=== PATIENT | male | born 1995 | race Caucasian/White ===

== ENCOUNTER 2024-08-29 06:04 | Day surgery (SDC) | payer OTHER, SELFPAY ==
[2024-08-21 14:34] VITALS: BMI 25.0
[2024-08-29 06:25] VITALS: BP 105/69; PULSE 63; RESP 16; TEMP 37.1; O2SAT 99
[2024-08-29] MEDS: LACTATED RINGERS 1000ML 1,000 ML 25 ML IV (06:34)
--- NOTE | 2024-08-29 06:53 | EXP.ANES.CKL ---
[facility] Disclaimer: The information contained in this section may have been updated after the patient was seen, as this information can be updated by other users. Medical History (Updated 08/29/24 @ 06:26 by Racheal Yarbrough RN) Anxiety and depression Acid reflux Small fiber neuropathy Surgical History No significant past surgical history Family History (Updated 08/29/24 @ 06:26 by Racheal Yarbrough RN) Father Cancer Other Family history of bipolar disorder Social History (Updated 08/29/24 @ 06:27 by Racheal Yarbrough RN) Smoking Status: Never smoker alcohol intake: current substance use type: denies use current occupational status: employed Travel in the last 8 weeks: None caffeine: No [facility] Anesthesia Checklist Patient Identification Patient Identification: Arm Band and Family Structural Data Admitted From: Home Planned Operative Procedure/s: EGD Consent for Planned Operative Procedure(s) Verified: Yes Verified Documents: Surgical Consent and History and Physical NPO Status Verified Time NPO: 00:00 Additional verifications Patient : No Anesthesia Reactions: No Hx Blood Transfusions: No Blood Transfusion Reaction: No Cephalosporin Allergy: No Previous Colonoscopy: No Airway Assessment Mallampati Score:: Class II C-Spine Mobility Assessed: Yes TMJ Mobility Assessed: Yes Dentition: Good Dentition Neurological Assessment Level of Consciousness: Awake, Alert, Appropriate and Follows Commands Hx Seizures: No Numbness or tingling in extremities: No Anesthesia Plan Anesthesia Risk discussed: Yes ASA Class: II Anesthesia Type: MAC Preoperative Comments Pre-Operative Comments: Marijuana three times per week. No previous anesthesia. Difficulty swallowing.
--- NOTE | 2024-08-29 07:30 | P.HP_ITS ---
History of Present Illness *Admission Date: 08/29/24 *Reason for visit:: Dysphagia/globus *History of present illness: Mr. Kay is a 29-year-old gentleman who is here for acid reflux, dysphagia and globus sensation which is worsening. The examination is deemed medically necessary for diagnostic EGD. The patient has been seen, interviewed and examined prior to the procedure by both myself and the anesthesia provider. [facility] Disclaimer: The information contained in this section may have been updated after the patient was seen, as this information can be updated by other users. Medical History (Updated 08/29/24 @ 06:26 by Racheal Yarbrough RN) Anxiety and depression Acid reflux Small fiber neuropathy Surgical History No significant past surgical history Family History (Updated 08/29/24 @ 06:26 by Racheal Yarbrough RN) Father Cancer Other Family history of bipolar disorder Social History (Updated 08/29/24 @ 06:27 by Racheal Yarbrough RN) Smoking Status: Never smoker alcohol intake: current substance use type: denies use current occupational status: employed Travel in the last 8 weeks: None caffeine: No Review of Systems Review of Systems Review of systems (narrative): Negative *Cardiovascular Comments: Negative *Gastrointestinal Comments: Negative *Genitourinary Comments: Negative *Musculoskeletal Comments: Negative *Neurologic Comments: Negative Meds Home Medications and Allergies Home Medications ?Medication ?Instructions ?Recorded ?Confirmed ?Type prazosin 5 mg capsule 5 mg PO DAILY 08/06/24 08/29/24 History omeprazole 20 mg capsule,delayed 20 mg PO DAILY 08/21/24 08/29/24 History release propranolol 20 mg tablet 20 mg PO DAILY 08/29/24 08/29/24 History New Prescriptions to Start Prescriptions: Allergies Allergy/AdvReac Type Severity Reaction Status Date / Time fluoroquinolone Allergy Unknown Uncoded 08/29/24 06:22 allergy reaction Exam Data for Last 24 hours Vital signs and Labs for Last 24 Hours: Temp Pulse Resp BP Pulse Ox O2 Del Method 98.8 F 63 16 105/69 L 99 Room Air 08/29/24 06:25 08/29/24 06:25 08/29/24 06:25 08/29/24 06:25 08/29/24 06:25 08/29/24 06:25 *Routine HEENT Exam Head: Present normocephalic Eye: Present EOMI and PERRL ENT: Present mucous membranes moist *Routine Neck Exam Neck: Present supple *Routine Respiratory Exam Respiratory: Present CTA bilaterally *Routine Cardiovascular Exam Cardiovascular: Present RRR *Routine Abdominal Exam Abdominal: Present soft and normoactive bowel sounds; Absent tenderness *Routine Rectal Exam Rectal:: deferred *Routine Genitalia Exam Genitalia:: deferred *Routine Extremities Exam Extremities: Absent cyanosis, clubbing or edema *Routine Skin Exam Skin: Present warm; Absent rash *Routine Neurological Exam Neurological: Present alert and oriented X3 Assessment and Plan *Assessment and plan (1) Dysphagia: Status: Acute Category: Medical Code(s): R13.10 - Dysphagia, unspecified (2) Acid reflux: Status: Acute Category: Medical Code(s): K21.9 - Gastro-esophageal reflux disease without esophagitis (3) Globus sensation: Status: Acute Category: Medical Code(s): R09.A2 - Foreign body sensation, throat Plan A/P: 1. Dysphagia/globus worsening with chronic intractable GERD is the preprocedural diagnosis. The patient will be anesthetized/sedated using MAC sedation. The patient has been seen and examined. Cardiac and lung assessment prior to the examination is stable. Proceed with planned EGD
--- NOTE | 2024-08-29 07:32 | HMH.PROCNOTE ---
[facility] Procedure Note Date: 08/29/24 Time: 07:54 Procedure Note:: Upper Endoscopy Procedure Report: Esophagogastroduodenoscopy with cold biopsies and TTS balloon dilation Endoscopost: Jose M Ordaz II, MD Referring Physician: Karlo Daley MD [address] [place], [place] [id number] Date of Procedure: August 29, 2024 Equipment: Olympus GIF 190 standard upper endoscope Sedation: MAC sedation Indications: Mr. Kay is a 29-year-old gentleman who is here for diagnostic colonoscopy secondary to chronic GERD with heartburn and reflux. He does take omeprazole 20 mg daily. He also has had some chronic dysphagia. He does feel like this is getting worse and every time he eats he feels as if food is getting stuck in his upper esophagus. He does report that this occurs sometimes even with his own saliva and he feels something hung with globus sensation. He was diagnosed with a gastric ulcer and reflux in middle school. He was treated with Prilosec at that time. He does have moderate belching. He will sometimes get chest pressure that radiates into the back and feels the need to belch but cannot. He does not drink carbonated beverages. He reports no bloating, nausea or early satiety. He reports regular bowel function. This is his first upper endoscopy. Procedure: Prior to the procedure, a history and physical exam was performed, and patient's medications and allergies were reviewed. The risks, benefits and alternatives of the sedation and procedure were discussed with the patient. All questions were answered and informed consent was obtained. The patient was brought to the procedure room. Patient identification and proposed procedure were verified by the physician and the nurse. The patient was placed in a left lateral decubitus position and the scope was passed under direct vision. Throughout the procedure, the patient's blood pressure, pulse, and oxygen saturations were monitored continuously. The upper GI endoscopy was accomplished without difficulty. The patient tolerated the procedure well. Findings: The scope was passed directly into the upper esophagus and advanced to the third portion of the duodenum. The post bulbar duodenum and duodenal bulb were normal with normal mucosa and conniventes. The scope was withdrawn through a normal duodenal bulb and pylorus into the stomach. There was bile reflux with mild to moderate linear reactive gastropathy of the antrum and body of the stomach. Biopsies were taken from the antrum. There was a 11 to 12 mm polyp along the greater curvature and body of the stomach and likely a fundic gland polyp that was removed via biopsy. Upon retroflexion in the fundus and cardia were normal. There was no hiatal hernia. The scope was then withdrawn into the esophagus. There was no evidence of reflux esophagitis or Sultana's. There was no Schatzki's ring. There was no corrugation or furrowing and no esophageal strictures or stenosis. There was no proximal esophageal inlet patch. Cold biopsies were taken from the proximal esophagus to rule out EOE. The entire esophagus was dilated to 60 English/20 mm with a TTS hydrostatic balloon. There was no evidence of any fibrous webs or rings and there was no resistance. There were tertiary contractions and evidence of moderate esophageal dysmotility. The remainder of the esophageal mucosa was normal. Impression: 1. Nonerosive GERD with moderate esophageal dysmotility 2. Bile reflux with linear reactive gastropathy 3. Gastric fundic gland polyp Plan: I will follow-up the biopsies. The patient does have functional GERD and primarily duodenal/bile reflux. I do feel that most of his symptoms of reflux, belching and globus sensation are related to and driven by lower intestinal gas pressure gradients/high gas pressure buildup resulting in backflow of bile and peptic fluid from the duodenum into the stomach (duodenal reflux) and then into the esophagus. This gas production (carbon dioxide, hydrogen, methane, etc.) from the lower intestinal tract is the byproduct of colonic bacterial fermentation. This colonic fermentation occurs when there is more carbohydrate (dietary starches, sugars and high residue plant fiber) substrate that does not get digested (in the middle or small intestine) or occurs when there is colonic fecal buildup and colonic bacterial overgrowth. This indeed leads to the gas pressure buildup with gas pressure gradients that do drive backflow and reflux. We will discuss treatment options.
[2024-08-29 07:35] VITALS: O2SAT 100
[2024-08-29 07:53] VITALS: BP 109/54; PULSE 69; RESP 18; O2SAT 95
[2024-08-29 08:03] VITALS: BP 115/61; PULSE 78; RESP 16; O2SAT 96
[2024-08-29 08:13] VITALS: BP 112/56; PULSE 78; RESP 16; O2SAT 97
[2024-08-29 08:23] VITALS: BP 104/54; PULSE 56; RESP 16; O2SAT 97
== END 2024-08-29 08:25 | disposition home or self-care (01) ==
PROVIDERS: PCP Family Medicine; Visit Provider Internal Medicine Gastroenterology
PROC: 0DJ08ZZ Inspection of Upper Intestinal Tract, Via Natural or Artificial Opening Endoscopic (ICD-10-PCS; CPT 43235; principal; 2024-08-29 07:30)
DX: R13.10 Dysphagia, unspecified (principal); K21.9 Gastro-esophageal reflux disease without esophagitis; R09.A2 Foreign body sensation, throat; K31.9 Disease of stomach and duodenum, unspecified; K31.7 Polyp of stomach and duodenum; K22.4 Dyskinesia of esophagus
CPT/HCPCS: 43239; 43249; C1726; J7120